=== PATIENT | male | born 1980 | race Two or more races ===

== ENCOUNTER 2019-07-23 00:52 | Emergency (ER) | payer MEDICAID ==
[~2019-07-23] VITALS: Ht 172.7 cm; Wt 117.9 kg
[2019-07-23 01:06] VITALS: BP 146/96
== END 2019-07-23 01:55 | disposition left against medical advice (07) ==
LOC: ER 00:58
DX: I83.90 Asymptomatic varicose veins of unspecified lower extremity (principal); Z53.21 Procedure and treatment not carried out due to patient leaving prior to being seen by health care provider